=== PATIENT | male | born 1960 | race Caucasian/White ===

== ENCOUNTER → 2016-11-22 | Outpatient (CLI) | payer MEDICARE | END | disposition home or self-care (01) | LOC: RAD 10:01 | PROVIDERS: ATTEND Internal Medicine Infectious Disease | DX: J92.9 Pleural plaque without asbestos (principal); B44.9 Aspergillosis, unspecified; Z79.2 Long term (current) use of antibiotics | CPT/HCPCS: 36569; 76937; 77001; C1751 ==

== ENCOUNTER → 2018-11-04 | Outpatient (CLI) | payer MEDICARE | END | disposition home or self-care (01) | LOC: RAD 11:46 | PROVIDERS: ATTEND Internal Medicine Infectious Disease | DX: A15.9 Respiratory tuberculosis unspecified (principal); M41.84 Other forms of scoliosis, thoracic region | CPT/HCPCS: 71046 ==